=== PATIENT | male | born 1970 | race Hispanic/Latino ===

== ENCOUNTER 2021-12-01 00:37 | Emergency (ER) | payer SELFPAY ==
[~2021-12-01] VITALS: Ht 167.6 cm; Wt 71.7 kg
[2021-12-01] MEDS ORDERED: FLUORESCEIN SODIUM 1 STRIP STRIP ONE ×2 (01:27→04:02)
[2021-12-01] MEDS ORDERED: GENTOO OD (04:51)
[2021-12-01 04:53] VITALS: BP 124/82
== END 2021-12-01 04:59 | disposition home or self-care (01) ==
LOC: EDH 00:37
DX: T15.01XA Foreign body in cornea, right eye, initial encounter (principal); F17.200 Nicotine dependence, unspecified, uncomplicated; X58.XXXA Exposure to other specified factors, initial encounter; Y93.89 Activity, other specified; Y92.89 Other specified places as the place of occurrence of the external cause; Y99.8 Other external cause status
CPT/HCPCS: 65222